=== PATIENT | female | born 1955 | race Caucasian/White ===

== ENCOUNTER → 2023-10-31 | Day surgery (SDC) | payer OTHER ==
[~2023-10-31] MED LIST: CEFAZOLIN SODIUM 1,000 MG VIAL ONE; CLOBETASOL EMOL15 GM; CRESTOR10 MG; GRALISE600 MG; HUMIRA40 MG/0.2; LYVISPAH10 MG; METFORMIN HCL500 MG; NABUMETONE500 MG PO; PANTOPRAZOLE SO40 M2; PERCOCET 5-3251 EACH PO; TOPROL XL50 M1; VISTARIL50 MG/ML; ZYRTEC10 M3
== END | disposition home or self-care (01) ==
LOC: CIR.AMB 07:00
PROVIDERS: ATTEND Orthopaedic Surgery
DX: M75.101 Unspecified rotator cuff tear or rupture of right shoulder, not specified as traumatic (principal); Z53.8 Procedure and treatment not carried out for other reasons; Z88.2 Allergy status to sulfonamides; Z91.013 Allergy to seafood; Z88.8 Allergy status to other drugs, medicaments and biological substances; Z88.5 Allergy status to narcotic agent